=== PATIENT | male | born 1985 ===

== ENCOUNTER 2024-02-27 16:00 | Outpatient (AMB) | payer SELFPAY ==
[2024-02-27 16:06] VITALS: BP 128/76; PULSE 68; O2SAT 98; BMI 29.5
--- NOTE | 2024-02-27 16:06 | MHC.PC.OV ---
Vital Signs 02/27/24 16:06 Height 5 ft 9 in Weight 200 lb BMI 29.5 BP 128/76 Blood Pressure Location Rt brachial Position Sitting Pulse 68 Pulse Source Pulse Oximeter Pulse Oximetry (%) 98 Oxygen Delivery Method Room Air Intake Visit Reasons: [employer]-Requesting Physical Exam Intake Note: Patient here to establish care. pt would like to talk about back injury that happened a few months ago. Allergies corn [CORN] Allergy (Intermediate, Unverified 02/27/24 16:07) UNKNOWN gluten [GLUTEN] Allergy (Intermediate, Unverified 02/27/24 16:07) DIARRHEA soy [SOY] Allergy (Intermediate, Unverified 02/27/24 16:07) UNKNOWN DAIRY PRODUCTS Allergy (Intermediate, Uncoded 02/27/24 16:07) UNKNOWN food intolerance Allergy (Unknown, Uncoded 02/27/24 16:07) Unknown Tobacco use date assessed: 02/27/24 Dental Screening Dental Screen Date: 02/27/24 Did you have a dental visit in the last 12 months?: No Did you have a dental problem in the last 6 months where you did not have access to dental care?: No Was dental information given to patient?: No HPI [employer]-Requesting Physical Exam HPI Details pt is here for PE. Reports right groin pull approx 2 months. lower back pain radiating to this region. It is getting better. HPI Comments History of Present Illness Details Pt is here for a PE. colonoscopy is up to date [facility] Social History Housing: House Patient Tobacco Use Status: Never used Tobacco e-Cigarette/Vaping Use: Never Used service: No Current occupational status: unemployed Cognitive needs: No Hearing needs: No Vision needs: No Questionnaire PHQ-9 Over the last 2 weeks, how often have you been bothered by any of the following problems? 1. Little interest or pleasure in doing things: several days 2. Feeling down, depressed, or hopeless: several days 3. Trouble falling or staying asleep, or sleeping too much: several days 4. Feeling tired or having little energy: several days 5. Poor appetite or overeating: several days 6. Feeling bad about yourself - or that you are a failure or have let yourself or your family down: not at all 7. Trouble concentrating on things, such as reading the newspaper or watching television: not at all 8. Moving or speaking so slowly that other people could have noticed. Or the opposite - being so fidgety or restless that you have been moving around a lot more than usual: not at all 9. Thoughts that you would be better off or of hurting yourself in some way: not at all Total score: 5 Depression Screening Interpretation: Negative Depression Screening Done: Yes 22367 - PHQ-9 Billing: Yes Source: Developed by Drs. Jackson Fuentes, Caitlyn Ruggiero, Ronan Gilmore and colleagues, with an educational ebonie from [employer]. Thrive Questionnaire Date Thrive assessed: 02/27/24 I am a: Patient What is your living situation today?: I choose not to answer this question Within the past 12 months, did the food you bought not last and you didn't have the money to get more?: I choose not to answer this question Within the past 12 months, did you worry whether your food would run out before you got money to buy more?: I choose not to answer this question Do you have trouble paying for medicines?: I choose not to answer this question Do you have trouble getting transportation to medical appointments?: I choose not to answer this question Do you have trouble paying your heating and electricity bill?: I choose not to answer this question Do you have trouble taking care of your child, family member or friend?: I choose not to answer this question Do you have trouble with day-to-day activities such as bathing, preparing meals, shopping, managing finances, etc.?: I choose not to answer this question Are you currently unemployed and looking for a job?: I choose not to answer this question Are you interested in more education?: I choose not to answer this question Please select the resources that you would like help with: Housing/[facility] Currently or been in a relationship where the following occur: I choose not to answer THRIVE Score: 0 AUDIT C Alcohol Use Questionnaire (AUDIT-C) 1. How often do you have a drink containing alcohol?: Never 2. How many drinks containing alcohol do you have on a typical day when you are drinking?: 1 or 2 3. How often do you have six or more drinks on one occasion?: Never Total Score: 0 Score Reviewed/Action Taken: No MAREK-7 AMB Questionnaire MAREK-7 Date MAREK - 7 assessed: 02/27/24 Feeling nervous, anxious, or on edge: 0 = Not at all Not being able to stop or control worryin = Not at all Worrying too much about different things: 0 = Not at all Trouble relaxin = Not at all Being so restless that it is hard to sit still: 0 = Not at all Becoming easily annoyed or irritable: 1 = Several days Feeling afraid as if something awful might happen: 0 = Not at all Total MAREK-7 score (0-4 normal; 5-9 mild; 10-14 moderate; 15-21 severe): 1 Source: Developed by Drs. Jackson Fuentes, Caitlyn Ruggiero, Ronan Gilmore and colleagues, with an educational ebonie from [employer]. MAREK-7 Assessment Billing MAREK-7 Assessment Tool: MAREK-7 Assessment 25532 Review of Systems Const Denies chills and Denies fever(s) Eyes Denies blurry vision ENT Denies vertigo, Denies dizziness and Denies sore throat Card Denies chest pain at rest, Denies chest pain with activity, Denies diaphoresis, Denies dyspnea and Denies dyspnea on exertion Resp Denies cough, Denies dyspnea, Denies dyspnea on exertion and Denies wheezing GI Denies abdominal pain, Denies melena, Denies hematochezia, Denies constipation, Denies diarrhea and Denies loose stools Denies hematuria Musc Denies numbness and Denies tingling Skin/Breast Denies lesions Neuro Denies vertigo, Denies dizziness, Denies numbness and Denies tingling Psych Denies anxiety, Denies depression, Denies homicidal ideation, Denies suicidal ideation and Denies other (substance abuse) Aller/Immun Denies wheezing Physical exam (Primary Care) Vital Signs: Last Vital Signs Pulse 68 02/27/24 16:06 BP 128/76 02/27/24 16:06 Pulse Ox 98 02/27/24 16:06 Oxygen Delivery Method Room Air 02/27/24 16:06 BMI result Body Mass Index 29.5 Tobacco/Smoking Status: Tobacco use Status Tobacco use date assessed 02/27/24 02/27/24 16:08 Patient Tobacco Use Status Never used Tobacco 02/27/24 16:08 e-Cigarette/Vaping Use Never Used 02/27/24 16:08 PHQ-9: PHQ-9 Score PHQ-9: Total score 5 02/27/24 16:08 Depression Screening Interpretation: Negative Thrive Assessment: Date of Thrive Assessment Date Thrive assessed 02/27/24 02/27/24 16:08 Currently or been in a relationship where the following occur: I choose not to answer Const General: cooperative Nutritional Appearance: well nourished Orientation/consciousness: patient oriented x3 HENMT Head: Yes normal to inspection, Yes normocephalic and Yes atraumatic Ears: TM normal on the right and TM normal on the left Eyes General: appearance normal, both eyes and all related structures Alignment and Position: alignment normal and position normal Neck Neck: Yes normal visual inspection and Yes no lymphadenopathy Resp Effort & Inspection: normal respiratory effort Auscultation: clear to auscultation bilaterally Cardio Rate: regular rate Rhythm: regular rhythm Heart sounds: S1 normal heart sound present, S2 normal heart sound present and no murmurs GI Palpation (GI): Soft to palpation and nontender Auscultation: normal bowel sounds Male General Exam: Yes normal external exam Penis: normal penis Scrotum: scrotum normal, testes descended bilaterally and no inguinal hernias Testes: no testicular mass Skin Rashes: no rashes Neuro General: patient oriented x3, moves all extremities, no focal motor deficits and deep tendon reflexes 2+ bilaterally Romberg Test: Negative Extrem Right lower extremity: no edema Left lower extremity: no edema Psych Affect: normal affect Attitude: cooperative Thought process: Normal thought process present Assessment and Plan Assessment & Plan (1) Encounter for routine adult physical exam with abnormal findings: Code(s): Z00. - Encounter for general adult medical examination with abnormal findings Orders: Orders Comprehensive [place]. Panel Fast Today Z00.00 - Encounter for general adult medical examination without abnormal findings, Z. - Encounter for general adult medical examination with abnormal findings UA CC w/rflx Micro + Cult Today Z00.00 - Encounter for general adult medical examination without abnormal findings, Z. - Encounter for general adult medical examination with abnormal findings Complete Blood Count Auto Diff Today Z00. - Encounter for general adult medical examination without abnormal findings, Z. - Encounter for general adult medical examination with abnormal findings TSH reflex Free T4 Today Z00.00 - Encounter for general adult medical examination without abnormal findings, Z00.01 - Encounter for general adult medical examination with abnormal findings Lipid Panel Today Z00.00 - Encounter for general adult medical examination without abnormal findings, Z00.01 - Encounter for general adult medical examination with abnormal findings Coding Level of Care Code New Pt Prev Care 40-64y(30903) Diagnoses Encounter for routine adult physical exam with abnormal findings Z00.01 Additional Codes MAREK-7 Assessment Billing - MAREK-7 Assessment Tool: MAREK-7 Assessment 11878 ([id number])
== END 2024-02-27 16:40 | disposition home or self-care (01) ==
PROVIDERS: PCP Nurse Practitioner Family; Visit Provider Nurse Practitioner Family
DX: Z00.00 Encounter for general adult medical examination without abnormal findings (principal)
CPT/HCPCS: 99386